=== PATIENT | male | born 1985 | race Caucasian/White ===

== ENCOUNTER 2018-07-02 15:02 | Emergency (ER) | payer OTHER ==
[~2018-07-02] VITALS: Ht 182.9 cm; Wt 72.7 kg
[2018-07-02 15:29] VITALS: BP 146/86
[2018-07-02] MEDS ORDERED: IBUP-1984 PO (18:28)
[2018-07-02] MEDS ORDERED: ONDA4TAB6 PO (18:28)
== END 2018-07-02 18:35 | disposition home or self-care (01) ==
LOC: ER 15:03
DX: F07.81 Postconcussional syndrome (principal); F12.90 Cannabis use, unspecified, uncomplicated; Z79.899 Other long term (current) drug therapy
CPT/HCPCS: 70450; 72125; 99284